=== PATIENT | female | born 1985 | race Caucasian/White ===

== ENCOUNTER 2018-01-01 05:40 | Emergency (ER) | payer OTHER, MEDICAID ==
[~2018-01-01] VITALS: Ht 167.6 cm; Wt 52.2 kg
[~2018-01-01 05:40] MED LIST: AUGMENTIN 875875 MG PO; IBUPROFEN 800800 M1 PO; NORCO 5-325 TA1 EAC1 PO; PENICILLIN V P500 MG PO; TRAMADOL 50 MG50 MG PO
[2018-01-01 05:45] VITALS: BP 134/82
[2018-01-01] MEDS ORDERED: HYDROCODONE-AP1 EAC6 PO (05:52)
[2018-01-01] MEDS ORDERED: CLEOCIN HCL150 MG PO (05:52)
== END 2018-01-01 06:01 | disposition home or self-care (01) ==
LOC: M.ERS 05:40
DX: K04.7 Periapical abscess without sinus (principal); F12.10 Cannabis abuse, uncomplicated; Z88.1 Allergy status to other antibiotic agents